=== PATIENT | female | born 1980 | race African-American/Black ===

== ENCOUNTER → 2016-11-30 | Outpatient (CLI) | payer BC ==
[2016-11-30] MEDS: IOHEXOL 240 MG/ML 50ML VIAL. PO ONE (11:48)
[2016-11-30] MEDS: IOHEXOL 300 MG/ML 100ML VIAL. IV ONE (11:48)
--- NOTE | 2016-11-30 13:12 | KCIC ---
Indication: Epigastric pain with nausea and vomiting. Axial imaging through the abdomen was performed after the administration of intravenous contrast. One or more of the following individualized dose reduction techniques were utilized for this examination: 1. Automated exposure control 2. Adjustment of the mA and/or kV according to patient size 3. Use of iterative reconstruction technique No prior studies are available for comparison. The lung bases are clear. No focal liver mass is detected. The gallbladder is surgically absent. The pancreas and spleen are unremarkable. No adrenal mass is identified. The kidneys are unremarkable. Aorta is nonaneurysmal. There is moderate stool throughout the colon. No free fluid is seen. Small bowel is normal caliber. No free air is detected. IMPRESSION: Moderate stool within the colon. The study is otherwise unremarkable. Electronically signed by: Elian Amaral MD (11/30/2016 1:09 PM) [id number]
== END | disposition home or self-care (01) ==
LOC: KCIC CT 10:23
PROVIDERS: ATTEND Nurse Practitioner Family
DX: R10.13 Epigastric pain (principal); R11.2 Nausea with vomiting, unspecified; Z90.49 Acquired absence of other specified parts of digestive tract
CPT/HCPCS: 74160; Q9966; Q9967

== ENCOUNTER → 2016-12-31 | Day surgery (SDC) | payer BC ==
[~2016-12-31] MED LIST: HYDROmorphone 2 MG/ML VIAL IV PRN; IV RINGERS,LACTATED 1000ML 1,000 ML IV SCH; LIDOCAINE 1% PF 2 ML VIAL. ID PRN; LUBI24CA7 PO; MORPHINE SULFATE 2 MG/ML DISP.SYRIN. IV PRN; ONDANSETRON PF 4 MG/2 ML VIAL. IV PRN; PROCHLORPERAZINE 10 MG/2 ML VIAL. IV PRN; PROPOFOL 20 ML IV ONE; [UNRECOGNIZED DRUG - OTHER]; fentaNYL PF VIAL 100 MCG/2 ML VIAL IV PRN
[2016-12-31 08:15] VITALS: BP 114/67
[2016-12-31 08:43] LABS: NEG OBC UR NEG; POS OBC UR POS
== END | disposition home or self-care (01) ==
LOC: ENDOS 06:25
PROVIDERS: ATTEND Internal Medicine Gastroenterology
DX: K64.0 First degree hemorrhoids (principal); K57.30 Diverticulosis of large intestine without perforation or abscess without bleeding; K21.9 Gastro-esophageal reflux disease without esophagitis; E03.9 Hypothyroidism, unspecified; Z72.0 Tobacco use; Z80.0 Family history of malignant neoplasm of digestive organs
CPT/HCPCS: 45378; 81025; J2704

== ENCOUNTER → 2017-08-23 | Outpatient (CLI) | payer BC | END | disposition home or self-care (01) | LOC: KCIC 10:46 | DX: M25.532 Pain in left wrist (principal); M79.645 Pain in left finger(s) | CPT/HCPCS: 73110; 73140 ==

== ENCOUNTER → 2018-05-05 | Outpatient (CLI) | payer BC ==
[2016-12-31 08:15] VITALS: BP 114/67
[~2018-05-05] MED LIST changes: -HYDROmorphone 2 MG/ML VIAL IV PRN; -IV RINGERS,LACTATED 1000ML 1,000 ML IV SCH; -LIDOCAINE 1% PF 2 ML VIAL. ID PRN; -MORPHINE SULFATE 2 MG/ML DISP.SYRIN. IV PRN; -ONDANSETRON PF 4 MG/2 ML VIAL. IV PRN; -PROCHLORPERAZINE 10 MG/2 ML VIAL. IV PRN; -PROPOFOL 20 ML IV ONE; -fentaNYL PF VIAL 100 MCG/2 ML VIAL IV PRN
--- NOTE | 2018-05-05 11:41 | KCIC ---
3 views of the bilateral feet without comparison for bilateral foot pain, left lateral foot pain, pain in the right arch, recent onset. FINDINGS: There is no fracture, dislocation, or acute osseous abnormality identified in either foot. No significant degenerative changes are seen. On the right, there is a very small calcaneal bone spur, and a moderate calcaneal enthesophyte. Minimal enthesophyte on the left. No radiopaque foreign bodies are seen. IMPRESSION: 1. No fracture or acute osseous abnormality of either foot. Electronically signed by: Joel David MD (05/05/2018 11:38 AM) [id number]
== END | disposition home or self-care (01) ==
LOC: KCIC 09:07
PROVIDERS: ATTEND Nurse Practitioner Family
DX: M77.31 Calcaneal spur, right foot (principal)
CPT/HCPCS: 73620

== ENCOUNTER → 2019-12-02 | Outpatient (CLI) | payer BC ==
[2016-12-31 08:15] VITALS: BP 114/67
--- NOTE | 2019-12-02 17:41 | RAD ---
DATE: 12/02/2019 1:29 PM EXAM: MAMMO TYLER AMELIE OMALLEY, BREAST RIGHT HISTORY: Medial right breast pain and focal tenderness. No palpable lump. She is due for screening. COMPARISON: None. This is a baseline. Bilateral CC and MLO views of the breasts were performed. Bilateral breast tomosynthesis was performed in CC and MLO projections. This study was interpreted with the benefit of Computerized Aided Detection (CAD). FINDINGS: Breast Density: SCATTERED The breast parenchyma shows scattered fibroglandular densities. Breast parenchyma level B Area of focal tenderness is marked at the medial right breast with a triangular marker and shows no mammographic correlate. No suspicious masses, microcalcifications or architectural distortion is present to suggest malignancy in either breast. The visualized axillae are unremarkable. Targeted ultrasound of the medial right breast in the area of patient reported focal tenderness (at the 1:30 o'clock position 16 cm from the nipple) revealed fatty breast tissue with no suspicious sonographic findings. IMPRESSION: No evidence of malignancy. No imaging correlate to the area of focal tenderness as reported by the patient is identified. BI-RADS CATEGORY: 1 NEGATIVE RECOMMENDED FOLLOW-UP: 12M 12 MONTH FOLLOW-UP Annual screening mammography is recommended, unless clinically indicated sooner based on symptoms or change in physical exam. Clinical management of patient's focal right breast tenderness is also recommended. PQRS compliance statement: Patient information was entered into a reminder system with a target due date for the next mammogram. Mammography is a sensitive method for finding small breast cancers, but it does not detect them all and is not a substitute for careful clinical examination. A negative mammogram does not negate a clinically suspicious finding and should not result in delay in biopsying a clinically suspicious abnormality. "Our facility is accredited by the [employer] Mammography Program."
== END | disposition home or self-care (01) ==
LOC: MAMMO 13:13
PROVIDERS: ATTEND Family Medicine
DX: N64.4 Mastodynia (principal)
CPT/HCPCS: 76641; 77066; G0279; 77062

== ENCOUNTER → 2021-03-16 | Outpatient (CLI) | payer BC ==
[2016-12-31 08:15] VITALS: BP 114/67
--- NOTE | 2021-03-16 15:17 | RAD ---
EXAM: Pelvic sonogram. HISTORY: Pain. TECHNIQUE: Transabdominal and transvaginal sonographic imaging of the pelvis was performed. COMPARISON: None. FINDINGS: The uterus measures 12.5 x 7.3 x 5.8 cm. There are uterine masses consistent with fibroids, measuring 3.7 x 2.7 x 2.0 cm within the lower uterine segment and 2.8 x 2.5 x 1.8 cm within the post erior uterine fundus abutting the endometrium. The endometrial stripe measures 15 mm in thickness. Th e ovaries are normal in size and demonstrate normal blood flow. There are nabothian cysts within the cervix. IMPRESSION: 1. Enlarged uterus containing fibroids measuring 3.7 cm and 2.8 cm. 2. Nabothian cysts within the cervix. 3. No acute sonographic finding. Electronically signed by: Dilma Colin MD (03/16/2021 3:15 PM) [id number]
== END ==
LOC: US 15:05
PROVIDERS: ATTEND Obstetrics & Gynecology
DX: D25.9 Leiomyoma of uterus, unspecified (principal); N85.2 Hypertrophy of uterus
CPT/HCPCS: 76830; 76856